=== PATIENT | female | born 1975 | race Hispanic/Latino ===

== ENCOUNTER → 2016-05-05 | Outpatient (REF) | payer OTHER ==
--- NOTE | 2016-05-05 13:34 | REP ---
Clinical: Injury . Technique: AP, lateral, bilateral oblique, and coned-down views. Findings: Alignment and lordosis is maintained. The vertebral bodies including transverse process and spinous processes are intact and normal. There is no evidence for acute fracture / compression injury or subluxation. No evidence for spondylolysis or spondylolisthesis. No significant degenerative change is noted. Impression: Normal lumbosacral spine radiograph series. Signed by Bobo Jean MD 05/05/2016 01:25 P
== END ==
LOC: M RAD 13:07 → EDSTATUS 07-05 16:34
PROVIDERS: ATTEND Internal Medicine
DX: M54.5 Low back pain (principal)

== ENCOUNTER 2019-04-04 21:09 | Emergency (ER) | payer OTHER ==
[2019-04-04 22:35] LABS: AMPHETAMINES LEVEL URINE NEGATIVE (NEGATIVE); BARBITURATES URINE NEGATIVE (NEGATIVE); BENZODIAZEPINES URINE NEGATIVE (NEGATIVE); CANNABINOIDS URINE NEGATIVE (NEGATIVE); COCAINE METABOLITE URINE NEGATIVE (NEGATIVE); METHADONE URINE NEGATIVE (NEGATIVE); OPIATES URINE NEGATIVE (NEGATIVE); PHENCYCLIDINE URINE NEGATIVE (NEGATIVE)
[2019-04-04] MEDS ORDERED: ONDANSETRON 4MG/2ML VIAL (J2405) As Ordered ONE (22:38)
[2019-04-04] MEDS ORDERED: ONDANSETRON 4 MG ORAL DISINTEGRATING TAB (Q0162 PER 1MG) PO ONE (22:45)
[2019-04-04] MEDS ORDERED: ONDANSETRON 4MG/2ML VIAL (J2405) IV ONE (23:00)
[2019-04-05] MEDS ORDERED: MULTIVITAMIN -ADULT INJECTION 10 ML, THIAMINE INJection 100 MG, FOLIC ACID 1 MG in NS 1... IV ONE (00:15)
[2019-04-05] MEDS ORDERED: METOCLOPRAMIDE INJ 10MG/2ML VIAL (J2765) IV ONE (00:45)
[2019-04-05] MEDS ORDERED: MORPHINE 10 MG/ML 1ML VIAL (J2270) IV ONE (00:45)
[2019-04-05] MEDS ORDERED: NS 1,000 ML IV ONE (00:45)
[2019-04-05 01:42] LABS: BASO % 0.2 % (0.0-1.0); EOS % 0.2 % (0.0-3.0); HEMATOCRIT 35.5 % (36.0-47.0); HEMOGLOBIN 11.5 g/dl (12.0-15.5); LYMPH # 1.1 10^3/uL (1.5-5.0); LYMPH % 23.7 % (24.0-44.0); MEAN CORPUSCULAR HEMOGLOBIN 27.5 pg (27.0-33.0); MEAN CORPUSCULAR HGB CONC 32.4 g/dl (32.0-36.5); MEAN CORPUSCULAR VOLUME 84.9 fl (80.0-96.0); MONO # 0.1 10^3/uL (0.0-0.8); NEUTROPHILS # 3.4 10^3/uL (1.5-8.5); NEUTROPHILS % 72.7 % (36.0-66.0); PLATELET COUNT, AUTOMATED 194 10^3/uL (150-450); RED BLOOD COUNT 4.18 10^6/uL (4.00-5.40); WHITE BLOOD COUNT 4.6 10^3/uL (4.0-10.0)
[2019-04-05 02:05] LABS: ALBUMIN 3.2 GM/DL (3.2-5.2); ALT/SGPT 26 U/L (12-78); BILIRUBIN,DIRECT < 0.1 MG/DL (0.0-0.2); BILIRUBIN,TOTAL 0.2 MG/DL (0.2-1.0); BLOOD UREA NITROGEN 7 MG/DL (7-18); CARBON DIOXIDE LEVEL 25 MEQ/L (21-32); CHLORIDE LEVEL 114 MEQ/L (98-107); CREATININE FOR GFR 0.46 MG/DL (0.55-1.30); GLOMERULAR FILTRATION RATE > 60.0 (>58); GLUCOSE, FASTING 115 MG/DL (70-100); LIPASE 52 U/L (73-393); POTASSIUM SERUM 3.6 MEQ/L (3.5-5.1); SODIUM LEVEL 151 MEQ/L (136-145)
[2019-04-05 02:18] LABS: HCG, SERUM QUALITATIVE NEGATIVE (NEGATIVE)
[2019-04-05 03:09] VITALS: BP 109/56
== END 2019-04-05 03:13 | disposition home or self-care (01) ==
LOC: M ED 21:09
DX: F10.129 Alcohol abuse with intoxication, unspecified (principal)
CPT/HCPCS: 80048; 80076; 80307; 83690; 84703; 85025; 96374; 96375; 99284; G0480; J2405; J2765; J3411

== ENCOUNTER → 2019-05-29 | Outpatient (CLI) | payer OTHER ==
--- NOTE | 2019-05-29 09:06 | REPMRS ---
Patient History The patient states she has not had a clinical breast exam in over a year. Family history of breast cancer at age 45 in mother, breast cancer at age 40 in sister, ovarian cancer at age 35 in sister. Patient states she had a left breast cyst aspiration last year. Priors done at [facility] Digital Woman Screen Mammo: May 29, 2019 - Exam #: [id number] Bilateral CC and MLO view(s) were taken. Technologist: Katie Edwards, Technologist Prior study comparison: April 08, 2018, left breast diagnostic unilateral mammo, performed at [facility]. March 27, 2018, bilateral digital mammo screening bilat, performed at [facility]. September 28, 2009, bilateral digital mammo screening bilat, performed at [facility]. FINDINGS: The breast tissue is heterogeneously dense. This may lower the sensitivity of mammography. There is a moderate amount of heterogeneously dense fibroglandular tissue which is fairly symmetric. There is no interval development of dominant mass, architectural distortion, or grouped microcalcification typical of malignancy. There has been no change in the appearance of the mammogram from the prior studies. 3-D tomosynthesis shows no additional findings. Assessment: BI-RADS/ACR category 1 mammogram. Negative Mammogram. Recommendation Breast MRI of both breasts in 6 months. Routine screening mammogram of both breasts in 1 year (for women over age 40). This patient's Lifetime Breast Cancer RIsk is estimated at 31.2 %. Annual screening Breast MRI scanniing is recommended for patient's whose lifetime risk assessment is over 20%. This mammogram was interpreted with the aid of an FDA-approved computer-aided dectection system. Electronically Signed By: David Ravi MD 05/29/19 0906
== END ==
LOC: M WHC 07:48
PROVIDERS: ATTEND Internal Medicine
DX: Z12.31 Encounter for screening mammogram for malignant neoplasm of breast (principal); Z80.3 Family history of malignant neoplasm of breast; Z80.49 Family history of malignant neoplasm of other genital organs

== ENCOUNTER → 2020-03-12 | Outpatient (CLI) | payer OTHER, BC ==
[~2020-03-12] MED LIST: ISOVUE-370 76% 100ML VIAL As Ordered ONE
--- NOTE | 2020-03-12 21:02 | REP ---
INDICATION: ABNORMAL FINDING OF LUNG FIELD COMPARISON: X-ray report dated 03/10/2020 TECHNIQUE: Axial contrast enhanced images from the thoracic inlet to the upper abdomen with coronal and sagittal reformations using 75 ml Isovue 370 intravenous contrast material. [address] CT examination was performed using the following dose reduction techniques: Automated exposure control, adjustment of mA and/or kv according to the patient's size, and use of iterative reconstruction technique. FINDINGS: The bilateral lung patel are well aerated, essentially symmetric and clear. No consolidation, suspicious nodule or mass lesion. No pleural effusion. No pneumothorax. Tracheobronchial tree is patent. Evaluation of the mediastinum demonstrates normal thoracic aorta, pulmonary vasculature, and heart/pericardium. No axillary, hilar, or mediastinal adenopathy is appreciated. Limited upper abdomen demonstrates normal bilateral adrenal glands and diffuse hepatosteatosis. There is an asymmetric 2.5 cm rounded masslike density in the left breast (image 26). Correlation is recommended. Previous studies suggested left breast cyst. IMPRESSION: 1. Normal contrast-enhanced chest CT. No acute mediastinal or pleuroparenchymal process. 2. Specifically, normal mediastinum without right hilar abnormality. 3. Left breast lesion may correspond to previously noted left breast cyst but correlation and follow-up may be warranted. <Electronically signed by Bobo Jean > 03/12/20 [id number]
== END ==
LOC: M RAD 17:39
PROVIDERS: ATTEND Internal Medicine
DX: N63.20 Unspecified lump in the left breast, unspecified quadrant (principal)
CPT/HCPCS: 71260; Q9967

== ENCOUNTER → 2020-06-02 | Outpatient (CLI) | payer OTHER ==
--- NOTE | 2020-06-02 15:45 | REP ---
INDICATION: MAGGIE DIAG MAMMO/LEFT BREAST LUMP; MAGGIE BREAST LUMPS. COMPARISON: Comparison mammography is from 29 May 2019, 08 April 2018, and 27 March 2018. TECHNIQUE: Bilateral CC and MLO) view(s) were taken. Routine views of the left breast were obtained with a skin marker affixed to the skin at site of the palpable lump. Routine views were augmented by magnified focal spot-compression images of the left breast in the CC, mL, and MLO projections. 3D tomography is carried out along with targeted left breast ultrasound. FINDINGS: Breast parenchyma is heterogeneously dense in a pattern which may inhibit the sensitivity mammography. In the right breast, there is a well-circumscribed 12 mm nodule superficially position in the anterior 3rd of the right breast upper outer quadrant. Right breast images are otherwise unchanged from the prior study and unremarkable. On the left, at the site of the palpable lump there is a well-circumscribed 3.0 cm mass. Tomographic images demonstrate other well-circumscribed small nodules scattered about the left breast. None as large as the finding corresponding to the palpable abnormality which is in the superior and medial quadrant. Breast parenchyma is otherwise unremarkable. The Volpara volumetric breast density pattern is C. Targeted sonography: Targeted right breast sonography demonstrates heterogeneous fibroglandular background echotexture. There are multiple simple cysts noted in the upper outer quadrant on the right. Four cysts measure as follows: 1.2 x 1.1 x 0.9, 1.3 x 1.3 x 0.9, 0.8 x 0.7 x 0.7, and 1.2 x 0.9 x 0.8 cm respectively. No suspicious abnormality is noted in the right breast sonographically. Targeted left breast sonography demonstrates multiple simple cysts including cysts measuring 1.7, 1.4, and 1.2 cm in greatest diameter at the 12 o'clock position. At 11 o'clock position in the left breast, 4 cm from the nipple, there is an oval-shaped hypoechoic lesion with well-circumscribed margins and enhanced through transmission. No Doppler flow is seen but there are internal echoes suggesting a solid lesion. This measures 3.8 x 2.9 x 1.3 cm. This is felt to correspond with the palpable mass. It as its long axis parallel to the skin.. IMPRESSION: BIRADS/ACR category 4 suspicious left breast imaging findings. Solid-appearing oval-shaped 3.8 cm mass at the site of the palpable lump in the upper-outer quadrant. Complex cyst versus fibroadenoma versus neoplasm. Histologic sampling recommended. BI-RADS category 2 benign right breast imaging findings. Multiple benign cysts are noted bilaterally by ultrasound. This patient's estimated Tyrer-Cuzick lifetime risk assessment for breast cancer is 30.4%. Enhanced screening in the form of annual bilateral breast MRI scanning is warranted. Bilateral breast MRI scanning is recommended annually, beginning 6 months from now. This mammogram was interpreted with the aid of an FDA-approved computer-aided detection system. The patient states she had a clinical breast exam in 6 months ago. The patient letter being requested is M4 dense. RECOMMENDATION: Ultrasound-guided needle biopsy procedure palpable lump left breast with clip placement and post clip placement left breast mammography recommended. <Electronically signed by David Ravi > 06/02/20 [id number]
== END ==
LOC: M WHC 09:16
PROVIDERS: ATTEND Internal Medicine
DX: Z12.31 Encounter for screening mammogram for malignant neoplasm of breast (principal); R92.8 Other abnormal and inconclusive findings on diagnostic imaging of breast
CPT/HCPCS: 76642; 77066; G0279

== ENCOUNTER → 2020-07-06 | Outpatient (CLI) | payer OTHER ==
[2020-07-06 14:41] VITALS: BP 118/60
--- NOTE | 2020-07-06 15:14 | REP ---
INDICATION: LT BREAST PALPABLE LUMP,POST US GUIDED BIOPSY. Marker clip placement views. COMPARISON: Comparison mammography is from June 02, 2020. TECHNIQUE: Craniocaudal and mediolateral views of the left breast are obtained. This mammogram was interpreted with the aid of an FDA-approved computer-aided detection system. FINDINGS: Craniocaudal and mediolateral views of the left breast demonstrate the needle biopsy marker clip in good position in the superomedial (density on the mammogram corresponding to the palpable abnormality. The Volpara volumetric breast density pattern is C. : IMPRESSION: Marker clip in good position in the left breast at the site of the palpable lump and mammographically visible soft tissue density. RECOMMENDATION: Management depending on biopsy results.. <Electronically signed by David Ravi > 07/06/20 [id number]
--- NOTE | 2020-07-06 15:51 | REP ---
INDICATION: LT BREAST PALPABLE LUMP,US GUIDED BIOPSY. COMPARISON: None. TECHNIQUE: The procedure was performed by CHALO Steve, under the direct supervision of . The risks and benefits of the procedure were explained to the patient and an informed consent was obtained both verbally and written. Directly prior to the start of the procedure a formal time-out was completed in the procedure room. FINDINGS: Using ultrasound guidance the left breast mass was localized. The skin was prepped and draped in a sterile fashion. Twelve mL of buffered lidocaine was used as a local anesthetic. Using ultrasound guidance a 14 gauge Bard Marquee coaxial needle biopsy system was inserted and advanced into the left breast mass. Six core biopsy specimens were obtained and sent to pathology for further analysis. A marker clip was placed at the biopsy site. The patient tolerated the procedure well and there were no immediate complications. After the appropriate amount of monitored convalescence the patient was discharged from the department. IMPRESSION: 1. Ultrasound-guided left breast biopsy. <Electronically signed by Teri Sparks > 07/06/20 1501 <Electronically signed by David Ravi > 07/06/20 [id number]
== END ==
LOC: M WHCPRO 13:04
PROVIDERS: ATTEND Internal Medicine
DX: N63.20 Unspecified lump in the left breast, unspecified quadrant (principal)

== ENCOUNTER → 2020-12-29 | Outpatient (CLI) | payer OTHER ==
[~2020-12-29] MED LIST changes: -ISOVUE-370 76% 100ML VIAL As Ordered ONE; +PROHANCE 279.3MG/ML 15ML VIAL As Ordered ONE
--- NOTE | 2020-12-29 14:40 | REP ---
INDICATION: HIGH RISK BREAST CA SCREENING. COMPARISON: Mammograms 06/02/2020 and 07/06/2020. TECHNIQUE: Three Danielle MRI imaging was performed with a dedicated breast coil. Axial, coronal, and sagittal T1 and T2 weighted scans were obtained with and without fat saturation in the usual fashion. The study includes dynamically acquired post gadolinium-enhanced imaging with image subtraction. Maximum intensity projection and multi planar reformation imaging is included as well. This study is interpreted with the aid of [employer], an FDA approved computer aided detection (CAD) software program, on a dedicated breast MRI workstation. The gadolinium enhancement dose is 15 mL of intravenous ProHance. FINDINGS: There is an extreme pattern of parenchymal tissue bilaterally. No axillary adenopathy is seen bilaterally. There is moderate background parenchymal enhancement bilaterally. There are multiple innumerable cysts identified bilaterally. Most are subcentimeter in diameter. The largest on the right measures approximately 1.6 cm in diameter, located inferolaterally. Largest on the left is in the retroareolar region at 6 o'clock measuring about 1.6 cm. There is an oval mass in the upper inner right breast containing a biopsy clip consistent with the previously biopsied fibroadenoma. This measures approximately 3.7 x 2.2 cm. There is a nodule just lateral to this in the mid left breast measuring slightly less than 1 cm in diameter which also demonstrates characteristics of a fibroadenoma. There is no suspicious enhancing mass or morphologic abnormality. IMPRESSION: BI-RADS category 2, benign bilateral breast MRI. 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 No suspicious enhancing mass or morphologic abnormality. Yearly supplemental screening MRI of the breasts is recommended for patients with an elevated lifetime risk of breast cancer of 20% or greater, in addition to annual screening mammography, staggered every 6 months. <Electronically signed by Jeet Joseph > 12/29/20 [id number]
== END ==
LOC: M RAD 12:24
PROVIDERS: ATTEND Internal Medicine
DX: Z12.39 Encounter for other screening for malignant neoplasm of breast (principal); D24.2 Benign neoplasm of left breast; N60.31 Fibrosclerosis of right breast; N60.32 Fibrosclerosis of left breast
CPT/HCPCS: A9576; C8908

== ENCOUNTER → 2021-01-13 | Outpatient (CLI) | payer OTHER ==
[~2021-01-13] MED LIST changes: +CABE0.5T PO; +CALCCAP4 PO; +CETI10CH PO; +D31000TA2 PO; +MELO15TA28 PO; +PRES10CA2 PO; -PROHANCE 279.3MG/ML 15ML VIAL As Ordered ONE; +ROSU40TA4 PO; +VITMTA PO; +ZINC1TAB2 PO
== END ==
LOC: M LABSMTC 09:49
PROVIDERS: ATTEND Anesthesiology
DX: Z01.812 Encounter for preprocedural laboratory examination (principal); Z20.822 Contact with and (suspected) exposure to COVID-19

== ENCOUNTER 2021-01-18 10:00 | Observation (INO) | payer BC, OTHER ==
[~2021-01-18] VITALS: Ht 160 cm; Wt 77.1 kg
[~2021-01-18 10:00] MED LIST changes: +HEPARIN SOD (PORCINE) 5000UNITS/ML 1ML VIAL/SYRINGE SQ ONE; +LIDOCAINE 1% MDV 20ML VIAL SQ PRN; +LR 1,000 ML IV ONE; +ceFAZolin SOD 2 GM in IV 1 EA IV ONE
[2021-01-18] MEDS ORDERED: MIDAZOLAM INJ 2MG/2ML VIAL (J2250 PER 1MG) As Ordered ONE (10:31)
[2021-01-18] MEDS ORDERED: fentaNYL 100 MCG/2 ML INJECTION (J3010) As Ordered ONE ×2 (10:32→16:10)
[2021-01-18] MEDS ORDERED: BUPIVACAINE LIPOSOME/PF 1.3% 20ML VIAL (13.3MG/ML)(EXPAREL)(C9290 PER1MG) As Ordered ONE (13:44)
[2021-01-18] MEDS ORDERED: GENTAMICIN SULF 80MG/2ML VIAL As Ordered ONE (13:44)
[2021-01-18] MEDS ORDERED: propofoL 200 MG/20 ML VIAL As Ordered ONE ×2 (14:30→15:04)
[2021-01-18] MEDS ORDERED: ACETAMINOPHEN 1000MG 100ML IV BTL (OFIRMEV) (J0131 PER 10MG) As Ordered ONE (14:30)
[2021-01-18] MEDS ORDERED: LIDOCAINE 2% 100MG/5ML SDV (FOR ANES.) As Ordered ONE (14:30)
[2021-01-18] MEDS ORDERED: SCOPOLAMINE 1MG TRANSDERMAL PATCH As Ordered ONE (14:31)
[2021-01-18] MEDS ORDERED: dexameTHASONE 4 MG/ML 1ML VIAL (J1100 PER 1MG) As Ordered ONE (14:41)
[2021-01-18] MEDS ORDERED: ROCURONIUM BROMIDE 50 MG/5 ML VIAL As Ordered ONE (15:04)
[2021-01-18] MEDS ORDERED: ONDANSETRON 4MG/2ML VIAL As Ordered ONE ×2 (15:05→17:45)
[2021-01-18] MEDS ORDERED: SEVOFLURANE INHAL SOLN 250 ML BTL As Ordered ONE (15:17)
[2021-01-18] MEDS ORDERED: MORPHINE 4 MG/ML 1ML VIAL/SYRINGE (J2270) IV PRN (17:40)
[2021-01-18] MEDS ORDERED: ONDANSETRON 4MG/2ML VIAL IV PRN ×2 (17:40→17:50)
[2021-01-18] MEDS ORDERED: ACETAMINOPHEN TAB 650MG DOSE (2X325MG) PO PRN (17:40)
--- NOTE | 2021-01-18 17:40 | POST-OPPD ---
Postoperative Procedure Note Date Of Procedure: Jan 18, 2021 PREOPERATIVE DIAGNOSIS: Panniculitis POSTOPERATIVE DIAGNOSIS: same PROCEDURE: Extended panniculectomy with rectus muscle plication. SURGEON: Dr Dee CONCRETER: none ANESTHESIA: General ESTIMATED BLOOD LOSS: 100 cc FINDINGS: rectus muscle diathesis, extensive lower abdominal scarring. Pannus. SPECIMENS: Pannus 1622 gm COMPLICATIONS: none REPLACED: none DRAINS: 10 mm TC x 2 POSTOPERATIVE CONDITION: stable BASIL DEE DO Jan 18, 2021 17:40
--- NOTE | 2021-01-18 17:40 | ROOPDOC ---
[facility] Report Of Operation Report of Operation DATE OF PROCEDURE: 01/18/21 PREOPERATIVE DIAGNOSIS: Panniculitis POSTOPERATIVE DIAGNOSIS: same PROCEDURE: Extended panniculectomy with rectus muscle plication. SURGEON: Dr Dee FINAL TESTER: none ANESTHESIA: General ESTIMATED BLOOD LOSS: 100 cc FINDINGS: rectus muscle diathesis, extensive lower abdominal scarring. Pannus. SPECIMENS: Pannus 1622 gm COMPLICATIONS: none REPLACED: none DRAINS: 10 mm TC x 2 POSTOPERATIVE CONDITION: stable DESCRIPTION OF PROCEDURE: Procedure: This is a 45-year-old female status post significant weight loss. Patient has excessive pannus above and mostly below the umbilicus with large mons pubis ptosis. Patient is scheduled for extended panniculectomy. Risks benefits and alternatives discussed with the patient in details. Informed consent confirmed and preoperative holding area. Patient was marked in upright position. She was brought into the operating room, placed in supine position, preoperative antibiotics given, sequential stockings placed in the lower calves, and then general anesthesia is induced. 5000 units heparin given subcutaneously. Fully introduced in the bladder without any difficulties with yellow clear urine present. She was prepped and draped in the usual sterile fashion. Lower abdominal incision was designed 7 cm above the labial crease. Incision carried out with 10 blade. Careful sharp dissection with electrocautery and peek cautery was done until the fascia of rectus muscle is identified. Vessels were identified throughout and either cauterized or suture ligated for hemostasis control. Significant scarring was encountered at the lower mid abdominal area status post total abdominal hysterectomy surgery. Fascia completely intact. Infraumbilical flap was divided in the middle to aid the dissection. We continued our dissection until umbilicus was encountered. Rhomboid incision made around the umbilicus and dissection continued until the xiphoid process superiorly and costal margins laterally. Abdominal rectus muscle was reexamined and we found for her to have diathesis around 5 cm at midline. Diathesis was plicated with interrupted 0 Vicryl sutures followed by a barbed PDS #1 suture. Hemostasis was checked again and sprayed Tisseel was used to assure capillary hemostasis as well. Wound was irrigated with gentamicin irrigation. Patient placed on placed in the reflex position and excess tissue was measured and scored. Then it was resected using electrocautery. Total weight of the blankenship nus 1622 g. Careful hemostasis was assured. Exparel local anesthetic given into the rectus sheath total 10 cc. Skin flaps were realigned and was started all closure with deep sutures of 0 Vicryl realigning the mons pubis and closing the lower abdominal incision. 3 mL Monocryl V lock suture used for subcutaneous closure followed by 3-0 Monocryl interrupted sutures as well. Two 10 mm Jermaine-Collier drains were placed throughout lower abdominal incision. New opening was created for the umbilical stump using electrocautery. The umbilicus was brought into view and sutured in place with interrupted 3-Monocryl sutures and 5-0 plain gut sutures in the running fashion. Additional Exparel was given throughout the lower abdominal incisions totaling 20 cc. Prinio dressing applied to lower abdominal incision, Xeroform to umbilicus, and bulky dressing throughout. Abdominal binder applied. Patient extubated in the operating room without any difficulties and transferred to recovery room in stable condition.. BASIL DEE DO Jan 18, 2021 17:40
[2021-01-18] MEDS ORDERED: SUGAMMADEX SODIUM 500 MG/5 ML VIAL (BRIDION) As Ordered ONE (17:47)
[2021-01-18] MEDS ORDERED: oxyCODONE 5MG TAB PO PRN (17:50)
[2021-01-18] MEDS ORDERED: LR 1,000 ML IV SCH (17:50)
[2021-01-18] MEDS: fentaNYL 100 MCG/2 ML INJECTION (J3010) IV PRN ×4 (17:56→18:58)
[2021-01-18] MEDS ORDERED: PROMETHAZINE INJ 25 MG/ML VIAL (J2550) IV PRN (18:20)
[2021-01-18 19:38] VITALS: BP 141/75
[2021-01-18 20:30] VITALS: BP 143/78
[2021-01-18] MEDS: DOCUSATE SODIUM 100MG CAPSULE PO SCH (20:34)
[2021-01-18] MEDS: LR 1,000 ML IV SCH (20:35)
[2021-01-18] MEDS: PERCOCET 5MG/325MG TAB PO PRN (20:38)
[2021-01-18 21:30] VITALS: BP 127/72
[2021-01-18 22:30] VITALS: BP 103/60
[2021-01-18] MEDS: ceFAZolin SOD 1 GM in D5W MINI-BAG PLUS 50 ML IV SCH (23:11)
[2021-01-19 00:35] VITALS: BP 103/60
[2021-01-19] MEDS: PERCOCET 5MG/325MG TAB PO PRN ×3 (04:20→14:07)
[2021-01-19 04:35] VITALS: BP 106/59
[2021-01-19] MEDS: ceFAZolin SOD 1 GM in D5W MINI-BAG PLUS 50 ML IV SCH ×2 (06:23→14:54)
[2021-01-19] MEDS: LR 1,000 ML IV SCH (06:24)
[2021-01-19] MEDS: DOCUSATE SODIUM 100MG CAPSULE PO SCH (08:26)
[2021-01-19] MEDS ORDERED: CETIRIZINE (ZyrTEC) 10 MG TAB PO SCH (09:00)
[2021-01-19 10:00] VITALS: BP 107/57
[2021-01-19 14:00] VITALS: BP 108/58
--- NOTE | 2021-01-19 15:12 | IPNPDOC ---
Subjective General Date Seen: Jan 19, 2021 Subject Chief Complaint/History The patient is a 45-year-old female admitted with a reason for visit of Panniculitis. Patient status post extended panniculectomy with rectus muscle plication postop day 1. Pain controlled, patient ambulating to the bathroom, t olerating regular diet. Current Medications Current Medications Current Medications Medications (Trade) Dose Ordered Sig/Pranav Route PRN Reason Start Time Stop Time Status Last Admin Dose Admin Acetaminophen (Tylenol Tab) 650 mg Q6H PRN PO MILD PAIN (PS 1-4) 01/18/21 17:40 Cefazolin Sodium 1 gm/Dextrose 50 ml @ 100 mls/hr Q8H IV 01/18/21 23:00 01/19/21 14:54 Cetirizine HCl (ZyrTEC) 10 mg DAILY PO 01/19/21 09:00 01/19/21 08:26 Docusate Sodium (Colace) 100 mg BID PO 01/18/21 21:00 01/19/21 08:26 Fentanyl Citrate (Sublimaze) 25 mcg Q5MP PRN IV PAIN LEVEL 8-10 01/18/21 17:50 01/18/21 18:58 DC 01/18/21 18:58 Lactated Ringer's 1,000 ml @ 75 mls/hr [id number] IV 01/18/21 17:40 01/19/21 06:24 Lactated Ringer's 1,000 ml @ 80 mls/hr [id number] IV 01/18/21 17:50 01/18/21 19:50 DC Lidocaine HCl (LIDOCAINE 1% MDV 20ml) 0.1 ml ONCE PRN SQ DISCOMFORT BEFORE IV START 01/18/21 06:00 01/18/21 17:44 DC Morphine Sulfate (Morphine Sulfate Inj) 4 mg Q4HP PRN IV SEVERE PAIN (PS 8-10) 01/18/21 17:40 Ondansetron HCl (ZOFRAN INJection) 4 mg Q4H PRN IV NAUSEA OR VOMITING 01/18/21 17:40 Ondansetron HCl (ZOFRAN INJection) 4 mg Q4HP PRN IV NAUSEA OR VOMITING 01/18/21 17:50 01/18/21 19:50 DC 01/18/21 17:45 Oxycodone HCl (Roxicodone, Oxyir) 5 mg ASDIRECTED PRN PO PAIN LEVEL 1-4 01/18/21 17:50 01/18/21 19:50 DC Oxycodone/ Acetaminophen (Percocet 5mg/ 325mg Tablet) 2 tab Q4HP PRN PO PAIN LEVEL 5-7 01/18/21 17:40 01/19/21 14:07 Promethazine HCl (PHENERGAN INJection) 12.5 mg Q5MP PRN IV NAUSEA OR VOMITING 01/18/21 18:20 01/18/21 20:20 DC 01/18/21 18:25 Allergies Coded Allergies: No Known Allergies (Verified , 01/18/21) Objective Physical Examination Examination GENERAL APPEARANCE:Patient seen, laying in bed, awake, alert, and oriented. Comfortable, in no acute distress. SKIN: Warm and moist. LUNGS: Clear to auscultation bilaterally. No wheezing appreciated. HEART: No chest wall abnormalities. Regular rate and rhythm with no murmurs appreciated. ABDOMEN: Abdomen is soft, non-tender, non-distended. Incision intact. Umbilicus viable. TC drains with serosanguinous drainage. 45/80 cc/24hr each drain. EXTREMITIES: No edema identified. No calf tenderness. Vital Signs Vital Signs Date Time Temp Pulse Resp B/P (MAP) Pulse Ox O2 Delivery O2 Flow Rate FiO2 01/19/21 14:37 18 Room Air 01/19/21 10:00 98.2 65 107/57 (74) 94 I&Os I&O- Last 24 Hours up to 6 AM 01/19/21 05:59 Intake Total 2520 ml Output Total 220 ml Balance 2300 ml Impression Status post extended panniculectomy with rectus muscle plication postop day 1. Stable for discharge. Dressing changed today. Continue with compression binder and monitoring TC drains. Follow-up with plastic surgery after discharge. Plan / VTE VTE Prophylaxis Ordered?: Yes BASIL DEE DO Jan 19, 2021 15:12
[2021-01-19] MEDS ORDERED: PERCOCET PO (15:17)
[2021-01-21] MEDS ORDERED: TRAM50TA2 PO (12:01)
== END 2021-01-19 16:15 | disposition home or self-care (01) ==
LOC: M SDC 10:00 → M MS5PR 10:01
PROVIDERS: ADMIT Plastic Surgery Surgery of the Hand; ATTEND Plastic Surgery Surgery of the Hand
DX: M54.07 Panniculitis affecting regions of neck and back, lumbosacral region (principal); K21.9 Gastro-esophageal reflux disease without esophagitis; Z79.899 Other long term (current) drug therapy; E78.5 Hyperlipidemia, unspecified; E04.1 Nontoxic single thyroid nodule; L90.5 Scar conditions and fibrosis of skin
CPT/HCPCS: 15830; 15847; 88300; 96361; 96365; 96366; C9290; J0131; J0690; J1100; J1580; J1644; J2250; J2405; J3010

== ENCOUNTER → 2021-05-26 | Outpatient (CLI) | payer BC, OTHER ==
[~2021-05-26] MED LIST changes: -HEPARIN SOD (PORCINE) 5000UNITS/ML 1ML VIAL/SYRINGE SQ ONE; -LIDOCAINE 1% MDV 20ML VIAL SQ PRN; -LR 1,000 ML IV ONE; +PERCOCET PO; +PROHANCE 279.3MG/ML 5ML VIAL As Ordered ONE; +TRAM50TA2 PO; -ceFAZolin SOD 2 GM in IV 1 EA IV ONE
== END ==
LOC: M RAD 07:33
PROVIDERS: ATTEND Internal Medicine Endocrinology, Diabetes & Metabolism
DX: E22.1 Hyperprolactinemia (principal)
CPT/HCPCS: 70553; A9576

== ENCOUNTER → 2021-05-27 | Outpatient (REF) | payer BC ==
[~2021-05-27] MED LIST changes: -PROHANCE 279.3MG/ML 5ML VIAL As Ordered ONE
== END ==
LOC: M LAB REF 17:09
PROVIDERS: ATTEND Ophthalmology
DX: D23.10 Other benign neoplasm of skin of unspecified eyelid, including canthus (principal); D23.0 Other benign neoplasm of skin of lip

== ENCOUNTER → 2021-07-14 | Outpatient (CLI) | payer OTHER ==
[~2021-07-14] MED LIST changes: -D31000TA2 PO; +VITA100093 PO
== END ==
LOC: M WHC 06:43
PROVIDERS: ATTEND Internal Medicine
DX: Z12.31 Encounter for screening mammogram for malignant neoplasm of breast (principal); Z80.3 Family history of malignant neoplasm of breast; N60.01 Solitary cyst of right breast; N60.02 Solitary cyst of left breast